=== PATIENT | female | born 1975 | race Caucasian/White ===

== ENCOUNTER 2023-10-23 18:27 | Outpatient (REF) | payer MEDICAID, SELFPAY ==
[2023-10-23 18:19] LABS: TSH (W/Ref FT4) 4.37 uIU/mL (0.36-3.74)
[2023-10-23 18:50] LABS: FREE T4 1.56 ng/dL (0.76-1.46)
== END 2023-10-23 18:28 | disposition home or self-care (01) ==
LOC: LBN 18:27
PROVIDERS: PCP Physician Assistant; Visit Provider Nurse Practitioner Family
DX: E03.9 Hypothyroidism, unspecified (principal)
CPT/HCPCS: 84439; 84443

== ENCOUNTER 2024-08-30 08:21 | Day surgery (SDC) | payer MEDICAID, SELFPAY ==
[2024-08-30] VITALS (22 sets, daily range): BP systolic 111–133; BP diastolic 62–89; PULSE 72–99; RESP 14–26; TEMP 36–36.4; O2SAT 91–100; BMI 45.8
[2024-08-30] MEDS: Lactated Ringers 1,000 ML 80 ML IV (09:30)
--- NOTE | 2024-08-30 10:33 | W.ANESPRE ---
General Info Date of Service Date Performed: 08/30/24 Height: 5 ft 2 in Weight: 113.6 kg Body Mass Index (BMI): 45.8 Surgical Procedure: Operation Date: 08/30/24 11:25 Proposed Procedure Side Surgeon p Excision of Lt Oropharyngeal/Tongue Lesion Left Perfecto Barney MD Meds Allergies and Home Medications Allergies Allergy/AdvReac Type Severity Reaction Status Date / Time No Known Allergies Allergy Verified 08/30/24 08:56 Home Medication ?Medication ?Instructions ?Recorded albuterol sulfate 90 mcg/actuation 2 puff inhalation 4XD PRN 05/19/23 aerosol inhaler amlodipine 10 mg tablet 10 mg PO DAILY 05/19/23 aspirin 81 mg chewable tablet 81 mg PO DAILY 05/19/23 atorvastatin 40 mg tablet 40 mg PO DAILY 05/19/23 budesonide-formoterol HFA 160 2 puff inhalation BID 05/19/23 mcg-4.5 mcg/actuation aerosol inhaler (Symbicort) cholecalciferol (vitamin D3) 50 50 mcg PO DAILY 05/19/23 mcg (2,000 unit) capsule diltiazem HCl 120 mg 120 mg PO DAILY 05/19/23 capsule,extended release 24 hr divalproex 250 mg tablet,delayed See Rx Instructions PO BID 05/19/23 release duloxetine 60 mg capsule,delayed 60 mg PO DAILY 05/19/23 release ipratropium 0.5 mg-albuterol 3 mg 3 ml inhalation .4XDAY PRN 05/19/23 (2.5 mg base)/3 mL nebulization soln lorazepam 1 mg tablet (Ativan) 1 mg PO QHS PRN 05/19/23 magnesium oxide 500 mg PO QDAY 05/19/23 melatonin 10 mg tablet 10 mg PO HS PRN 05/19/23 multivitamin 1 tab PO DAILY 05/19/23 sucralfate 1 gram tablet 1 g PO BID 05/19/23 torsemide 20 mg tablet 20 mg PO DAILY 05/19/23 diclofenac sodium 1 % topical gel 2 g topical QID 08/05/24 eszopiclone 3 mg tablet (Lunesta) 3 mg PO QHS 08/05/24 famotidine 40 mg tablet 40 mg PO BID 08/05/24 isosorbide dinitrate 30 mg tablet 30 mg PO BID 08/05/24 levothyroxine 88 mcg capsule 100 mcg PO DAILY 08/05/24 metoprolol succinate 50 mg 150 mg PO DAILY 08/05/24 tablet,extended release 24 hr Current Visit Medications: Current Medications Generic Name Dose Route Start Last Admin Trade Name Duongq PRN Reason Stop Dose Admin Ringer's Solution 1,000 mls @ 80 mls/hr 08/30/24 08:45 08/30/24 09:30 IV 09/29/24 08:44 80 mls/hr INFUSION ZAINAB Administration IV Miscellaneous Supplies 1 each 08/30/24 08:45 Iv Access IV 09/29/24 08:44 DIRECTED ZAINAB Sodium Chloride 0 ml 08/30/24 08:45 Normal Saline Flush 10 Ml Syr IVP 09/29/24 08:44 PRN PRN Sodium Chloride 0 ml 08/30/24 20:00 Normal Saline Flush 10 Ml Syr IVP 09/29/24 19:59 BID ZAINAB Sodium Chloride 0 ml 08/30/24 08:45 Normal Saline 10 Ml Vial IJ 09/29/24 08:44 DIRECTED PRN PFSH Active Problems Active Problems: Problem Status Onset Code Chronic diastolic heart failure Acute I50.32 Carpal tunnel syndrome, bilateral Acute G56.03 Tongue lesion Acute K14.8 Mild asthma Acute J45.909 Hyperlipidemia Acute E78.5 Chronic systolic HF (heart failure) Acute I50.22 3+ pitting edema Acute R60.9 Barretts esophagus Acute K22.70 Morbid obesity Acute E66.01 Bipolar disorder Acute F31.9 Hypothyroidism Chronic E03.9 Depression Chronic F32.A Type 2 diabetes mellitus Acute E11.9 GERD (gastroesophageal reflux disease) Chronic K21.9 Asthma Chronic J45.909 Hypertensive disorder Chronic I10 Medical History Medical History Stable angina Constipation Low serum albumin Elevated liver enzymes Disorder of plasma protein metabolism Leukocytosis Chronic kidney disease, stage 3b IBS (irritable bowel syndrome) Dyslexia Hx of attention deficit hyperactivity disorder History of post traumatic stress disorder Per pt. states she over-active reflexes so she jumps frequently History of fibromyalgia Hx of endometriosis Anorexia Surgical History Surgical History H/O endoscopy History of colonoscopy Tobacco Smoking/Tobacco Use Status: Former Tobacco Use Passive smoking exposure: No Alcohol Alcohol Intake: never Substance Use Substance use: Never Substance use type: does not use Vital Signs and Lab Results Vital Signs Most Recent Vital Signs in EMR: Most Recent Vital Signs Temp Pulse Resp BP Pulse Ox 36.4 C L 72 18 133/89 100 08/30/24 09:03 08/30/24 09:03 08/30/24 09:03 08/30/24 09:03 08/30/24 09:03 Point of Care Results Point of Care Results: Finger Stick Blood Glucose 106 08/30/24 09:15 Lab Results Blood Type / Crossmatch: No Data to Display Complete Blood Count: No Data to Display Complete Metabolic Panel: No Data to Display Liver Function Panel: No Data to Display Coagulation Panel: No Data to Display Cardiac Panel: No Data to Display Arterial Blood Gas: No Data to Display Venous Blood Gas: No Data to Display Pancreas Panel: No Data to Display Thyroid Panel: No Data to Display Infectious Disease: No Data to Display Blood Cultures: No Data to Display Toxicology Panel: No Data to Display Panel: No Data to Display Anesthesia Assessment and Plan Anesthesia History Personal History: Delayed Emergence Family History: No Family History of Anesthesia Complications Exercise Tolerance Exercise Tolerance: Metabolic Equivalents>4 Cardiac & Pulmonary Exam Cardiac Exam: Normal S1/S2 Heart Sounds Pulmonary Exam: Clear Bilateral Breath Sounds Implantable Cardiac Device Does patient have a Pacemaker or an ICD?: No Airway Exam Known Difficult Airway: No Mallampati Class: 1 Mouth Opening: Normal (> 3cm) Thyromental Distance: Greater than 3 cm Neck Range of Motion: Full ROM Neck Circumference: Normal Teeth Condition: Normal Dentition ASA Classification ASA Score: ASA 3 Emergency Case?: No NPO Status NPO Status: NPO Clears >2 hours, Solids >8 hours Status Status: Not Per Patient Anesthesia Plan Resuscitation Status: Full Code Anesthesia Technique: General Anesthesia Airway Planned: Endotracheal Tube Monitors Used: Standard Monitors Preoperative Comments:: External cardiology notes reviewed, discussed with Dr. Barney.
--- NOTE | 2024-08-30 11:07 | W.PM.DSUDISC ---
Date of service: 08/30/24 Discharge Plan Disposition Patient Disposition: Home Condition: Good Discharge Details Reason For Visit: Oropharyngeal lesion Attending Provider: Perfecto Barney Primary Care Provider: Ila Mart Home Meds and New Rx's Prescriptions: No Action sucralfate 1 gram tablet 1 g PO BID melatonin 10 mg tablet 10 mg PO HS PRN cholecalciferol (vitamin D3) 50 mcg (2,000 unit) capsule 50 mcg PO DAILY torsemide 20 mg tablet 20 mg PO DAILY multivitamin Tablet 1 tab PO DAILY budesonide-formoterol [Symbicort] 160-4.5 mcg/actuation HFA aerosol inhaler 2 puff inhalation BID magnesium oxide 500 mg magnesium tablet 500 mg PO QDAY ipratropium-albuterol 0.5 mg-3 mg(2.5 mg base)/3 mL solution for nebulization 3 ml inhalation .4XDAY PRN duloxetine 60 mg capsule,delayed release(DR/EC) 60 mg PO DAILY divalproex 250 mg tablet,delayed release (DR/EC) See Rx Instructions PO BID Rx Instructions: 2 tabs in the am 1 tab in the pm total dose 750mg. diltiazem HCl 120 mg capsule,extended release 24hr 120 mg PO DAILY atorvastatin 40 mg tablet 40 mg PO DAILY lorazepam [Ativan] 1 mg tablet 1 mg PO QHS PRN aspirin 81 mg tablet,chewable 81 mg PO DAILY amlodipine 10 mg tablet 10 mg PO DAILY albuterol sulfate 90 mcg/actuation HFA aerosol inhaler 2 puff inhalation 4XD PRN metoprolol succinate 50 mg tablet extended release 24 hr 150 mg PO DAILY famotidine 40 mg tablet 40 mg PO BID isosorbide dinitrate 30 mg tablet 30 mg PO BID Rx Instructions: allow nitrate-free interval of 12-14 hrs per 24-hr period eszopiclone [Lunesta] 3 mg tablet 3 mg PO QHS diclofenac sodium 1 % gel 2 g topical QID Rx Instructions: apply to single elbow, wrist or hand; for hand includes palm/fingers/back of hand levothyroxine 88 mcg capsule 100 mcg PO DAILY Discharge Instructions Additional Instructions: My cell phone number is [phone]. Please call with any questions or concerns. If you are unable to reach me, please call 911 or go to the emergency room if you feel it is an emergency Diet as tolerated preoperatively No driving for 72 hours Ibuprofen or Tylenol for discomfort if needed Referrals: Perfecto Barney MD [ [facility]] - (1 month, please call for appointment prior to patient's departure) Discharge Orders Discharge Orders: Discharge Order (Routine); Ordered 08/30/24 Ordered By: Perfecto Barney
--- NOTE | 2024-08-30 12:10 | W.PM.OP ---
Operative Note Operative Note PRE-OP DIAGNOSIS: Left oropharyngeal lesion POST-OP DIAGNOSIS: same (- Varicosity) PROCEDURE: Exam under anesthesia, oropharynx SURGEON: Perfecto Barney ANESTHESIA TYPE: General LMA/ETT Refer to Anesthesia Record ESTIMATED BLOOD LOSS: 0 Implants: None Indications: The patient has a pigmented oropharyngeal lesion and is rounded, and appears to be a varicosity, but it is beyond my ability to palpate it or compress it in the office based on this location. Options were explained to the patient regarding further management. She elected to undergo exam under anesthesia with possible excision/biopsy/cauterization. Consent was obtained. H&P was reviewed. All questions were answered prior to the procedure. Findings: Rounded vascular lesion with a venous color, this compresses completely, and refills once the compression is removed. This measures approximately 5 x 7 x 5 mm, and is solitary. There is no ulceration. There is no surrounding induration. Procedure Description: After obtaining an adequate level of general endotracheal anesthesia, the patient was positioned in supine position with her head still elevated to prevent abdominal compression the thoracic contents. Unfortunately, maintaining her oxygenation with less than 100% O2 while intubated caused rapid desaturations. Attempts to open her airways more with albuterol did not correct this problem. As such, a Eagle-Brien mouthgag was carefully introduced into the oral cavity and opened revealed a soft and hard palate and permit thorough examination of the oropharynx. The left oropharyngeal lesion mentioned above was examined, and compressed, revealing that it easily compressed, completely emptying of blood, and then refilled fairly rapidly. There is no sign of overlying ulceration. There is no sign of thrombus. This was not in the location that would be easily tied off. Also because she was needing 100% O2 to maintain her saturations, I did not feel comfortable cauterizing this. As such, the decision was made to leave the lesion alone as it appears to be a varicosity. The cardiac mouthgag was carefully relaxed and removed and the patient was awakened and extubated by anesthesia and taken the recovery room in stable condition. I was present throughout the entire case. Date of Procedure: 08/30/24
--- NOTE | 2024-08-30 13:18 | W.ANESPOSTOP ---
Postoperative Evaluation Date, Time and Location Date Performed: 08/30/24 Time Performed: 13:18 Patient Location: Day Surgery Unit Vital Signs Most Recent Imported Vital Signs: Most Recent Vital Signs Temp Pulse Resp BP Pulse Ox 36.4 C L 82 18 112/78 96 08/30/24 13:09 08/30/24 13:09 08/30/24 13:09 08/30/24 13:09 08/30/24 13:18 Pain Score Most Recent Pain Score: Most Recent Pain Score Pain Level 2 08/30/24 13:09 Assessment Mental Status: Awake (Alert & Oriented to Patient Baseline) Airway and Respiratory Function: Patent airway with normal (patient baseline) respiratory exam Cardiovascular Function: Hemodynamically Stable Hydration Status: Adequately Hydrated Nausea & Vomiting: No Nausea or Vomiting Pain: Pain is tolerable per patient Peripheral Nerve Block: Patient did not receive a nerve block Postoperative Comments:: Will continue to use IS
== END 2024-08-30 13:38 | disposition home or self-care (01) ==
PROVIDERS: PCP Nurse Practitioner Family; Visit Provider Otolaryngology
PROC: (CPT 41010; principal; 2024-08-30 11:15)
DX: I86.8 Varicose veins of other specified sites (principal); E66.01 Morbid (severe) obesity due to excess calories; I50.22 Chronic systolic (congestive) heart failure; K21.9 Gastro-esophageal reflux disease without esophagitis; J45.909 Unspecified asthma, uncomplicated; I13.0 Hypertensive heart and chronic kidney disease with heart failure and stage 1 through stage 4 chronic kidney disease, or unspecified chronic kidney disease; N18.32 Chronic kidney disease, stage 3b; Z68.42 Body mass index [BMI] 45.0-49.9, adult
CPT/HCPCS: 42800; J1100; J2003; J2405; J2704; J3475

== ENCOUNTER 2025-02-24 01:59 | Outpatient (CLI) | payer MEDICAID, SELFPAY ==
[2025-02-24] MEDS: Inhaler, Assist Device 1 EACH MC (16:09)
[2025-02-24] MEDS: Levalbuterol HFA 15 GM INH 4 PUFF IH (16:09)
--- NOTE | 2025-03-01 07:57 | W.PFT ---
Date of service: 02/24/25 Time of Service: 14:46 Pulmonary Function Test Result Indications: Dyspnea Impression 1. Good patient effort was noted. ATS standards for reproducibility were met. 2. Normal spirometry. 3. Following the administration of a bronchodilator there was not a significant response 4. TLC was normal. No evidence of restrictive lung disease 5. DLCO was normal indicating normal alveolar gas exchange
== END 2025-02-24 02:00 | disposition home or self-care (01) ==
LOC: RT 01:59
PROVIDERS: PCP Nurse Practitioner Family; Visit Provider Nurse Practitioner Family
DX: J45.20 Mild intermittent asthma, uncomplicated (principal); R06.02 Shortness of breath
CPT/HCPCS: 94060; 94726; 94729